=== PATIENT | female | born 1980 | race Caucasian/White ===

== ENCOUNTER 2023-03-07 09:54 | Outpatient (OUT) | payer BC, SELFPAY ==
--- NOTE | 2023-03-07 10:42 | PM.PRESUREVA ---
History of Present Illness History of Present Illness Chief complaint: MENORRHAGIA Narrative: Patient presents for preadmission testing. The patient complains of heavy painful periods. She denies fever, nausea, vomiting, dysuria, or any other complaints. Review of Systems ROS Narrative REVIEW OF SYSTEMS: Negative except as stated in HPI, ten or more systems reviewed. Constitutional: No fever , chills, weakness ENT: No sore throat or epistaxis Cardiovascular: No edema, chest pain, palpitations, or activity intolerance Respiratory: No shortness of breath, cough, or wheezing Musculoskeletal: No joint pain or swelling Gastrointestinal: No constipation, diarrhea, or vomiting Genitourinary: No dysuria or hematuria Neurological: No numbness, tingling, weakness, or headache Psychiatric: No mood changes PFSH PFSH Medical History (Updated 03/07/23 @ 10:27 by Ana Bowers NP) Surgical History (Updated 03/07/23 @ 10:27 by Ana Bowers NP) (2008) Family History (Updated 03/07/23 @ 10:27 by Ana Bowers NP) Other Family history of colon cancer Family history of hypertension Family history of myocardial infarction Social History (Updated 03/07/23 @ 10:22 by Ana Bowers NP) Within the past year, how often did you have a drink containing alcohol: monthly or less Smoking status: Never smoker Non-prescribed substance use: denies use Highest level of school completed/degree received: Associate degree: occupational, technical, vocational program Meds Home Medications and Allergies Home Medications Medication Instructions Recorded Confirmed Type bupropion HCl 300 mg 24 hr tablet, 300 mg PO QDAY 03/07/23 03/07/23 History extended release escitalopram oxalate 5 mg tablet 5 mg PO QDAY 03/07/23 03/07/23 History hormone supplement 03/07/23 History pantoprazole 40 mg tablet,delayed 40 mg PO Q12H PRN heartburn 03/07/23 03/07/23 History release Allergies Allergy/AdvReac Type Severity Reaction Status Date / Time sulfamethoxazole Allergy Hives Verified 03/07/23 10:19 [From Bactrim] trimethoprim [From Bactrim] Allergy Hives Verified 03/07/23 10:19 tuberculin,PPD,multi-puncture Allergy Hives Verified 03/07/23 10:19 Exam Narrative Exam Narrative: Constitutional: Awake, alert, comfortable, well-appearing, nontoxic, interactive, vital signs as charted Head: Normocephalic, atraumatic Neck: Supple, normal appearance, normal range of motion, no meningeal signs, no lymphadenopathy Respiratory: No respiratory distress, breath sounds clear Cardiovascular: Regular rate and rhythm, strong and regular heart tones Abdomen: Nontender, normal bowel sounds, soft, no CVA tenderness Musculoskeletal: Normal gait, no swelling or edema Skin: No rashes or induration, no lesions, only visible skin inspected Neuro: No neurological deficits, normal sensation Psychiatric: Oriented ?3, flat affect Assessment and Plan Assessment and Plan (1) Dysmenorrhea: (2) Menorrhagia: (3) Pelvic pain: Plan vNOTES Hysterectomy, possible bilateral salpingo-oophorectomy, possible cystoscopy, possible exploratory laparotomy scheduled with Dr. Chen 03/16/2023.
[2023-03-07 10:48] LABS: Basophils Absolute Auto 0.1 10^3/uL (0.0-0.1); Basophils Percent Auto 0.7 % (0.2-2.0); Eosinophils Absolute Auto 0.2 10^3/uL (0.0-0.7); Eosinophils Percent Auto 1.7 % (0.9-7.0); Hemoglobin 12.2 g/dL (12.0-16.0); Immature Granulocytes Abs Auto 0.03 10^3/uL (0.00-0.03); Immature Granulocytes Pct Auto 0.3 % (0.0-0.5); Lymphocytes Absolute Auto 2.6 10^3/uL (1.2-3.8); Lymphocytes Percent Auto 29.3 % (20.5-60.0); Mean Corpuscular Hemoglobin 29.9 pg (26.7-34.0); Mean Corpuscular Volume 90.7 fL (81.0-99.0); Mean Platelet Volume 10.5 fL (9.5-13.5); Monocytes Absolute Auto 0.7 10^3/uL (0.3-0.8); Monocytes Percent Auto 7.6 % (1.7-12.0); Neutrophils Absolute Auto 5.4 10^3/uL (1.4-6.5); Neutrophils Percent Auto 60.4 % (43.0-75.0); Platelet Count 269 10^3/uL (150-450); Red Blood Count 4.08 10^6/uL (4.20-5.40); Red Cell Distribution Width 13.1 % (11.0-15.0); White Blood Count 8.9 10^3/uL (4.0-11.0)
[2023-03-07 11:00] LABS: INR 0.93; Partial Thromboplastin Time 27.1 sec (22.3-36.2); Prothrombin Time 9.9 sec (9.0-11.6)
[2023-03-07 11:08] LABS: Alanine Aminotransferase 31 U/L (14-59); Albumin Globulin Ratio 1.2; Albumin Level 3.7 g/dL (3.4-5.0); Alkaline Phosphatase 87 U/L (46-116); Anion Gap 11.6; Aspartate Amino Transferase 15 U/L (15-37); BUN Creatinine Ratio 13.6; Bilirubin Direct 0.1 mg/dL (0.0-0.2); Bilirubin Total 0.2 mg/dL (0.2-1.0); Calcium 8.9 mg/dL (8.5-10.1); Carbon Dioxide 27.5 mmol/L (21.0-32.0); Chloride 105 mmol/L (98-107); Estimated GFR (African America >60 (>=60); Estimated GFR (Non-African Ame >60 (>=60); Globulin 3.2 g/dL; Glucose 94 mg/dL (74-106); Potassium 4.1 mmol/L (3.5-5.1); Sodium 140 mmol/L (136-145); Total Protein 6.9 g/dL (6.4-8.2)
== END 2023-03-07 09:55 ==
LOC: PST 09:57
PROVIDERS: Obstetrics & Gynecology
DX: Z01.812 Encounter for preprocedural laboratory examination (principal); N92.0 Excessive and frequent menstruation with regular cycle; R10.2 Pelvic and perineal pain; N94.6 Dysmenorrhea, unspecified; N94.10 Unspecified dyspareunia
CPT/HCPCS: 36415; 80048; 80076; 85025; 85610; 85730; G0463

== ENCOUNTER 2023-03-16 11:28 | Day surgery (SDC) | payer BC, SELFPAY ==
[2023-03-07 10:23] VITALS: BP 124/81; PULSE 65; RESP 14; TEMP 36.4; O2SAT 98; BMI 34.5
[2023-03-16] VITALS (16 sets, daily range): BP systolic 118–145; BP diastolic 77–105; PULSE 67–111; RESP 14–24; TEMP 36.3–36.5; O2SAT 95–100
[2023-03-16 11:39] LABS: Basophils Absolute Auto 0.1 10^3/uL (0.0-0.1); Basophils Percent Auto 0.6 % (0.2-2.0); Eosinophils Absolute Auto 0.2 10^3/uL (0.0-0.7); Eosinophils Percent Auto 2.6 % (0.9-7.0); Hematocrit 38.4 % (36.0-48.0); Hemoglobin 12.5 g/dL (12.0-16.0); Immature Granulocytes Abs Auto 0.03 10^3/uL (0.00-0.03); Immature Granulocytes Pct Auto 0.4 % (0.0-0.5); Lymphocytes Absolute Auto 2.5 10^3/uL (1.2-3.8); Lymphocytes Percent Auto 32.3 % (20.5-60.0); Mean Corpuscular HGB Conc 32.6 g/dL (29.9-35.2); Mean Corpuscular Hemoglobin 29.4 pg (26.7-34.0); Mean Corpuscular Volume 90.4 fL (81.0-99.0); Mean Platelet Volume 9.8 fL (9.5-13.5); Monocytes Absolute Auto 0.6 10^3/uL (0.3-0.8); Monocytes Percent Auto 7.2 % (1.7-12.0); Neutrophils Absolute Auto 4.4 10^3/uL (1.4-6.5); Neutrophils Percent Auto 56.9 % (43.0-75.0); Platelet Count 245 10^3/uL (150-450); Red Blood Count 4.25 10^6/uL (4.20-5.40); Red Cell Distribution Width 13.2 % (11.0-15.0); White Blood Count 7.8 10^3/uL (4.0-11.0)
[2023-03-16] MEDS: LACTATED RINGER'S SOLUTION 1,000 ML 50 ML IV (12:07)
[2023-03-16 12:40] LABS: HCG Quantitative <1 mIU/mL
[2023-03-16] MEDS: CEFAZOLIN SODIUM/DEXTROSE,ISO 2 GM/50 ML PIGGYBACK IV ×2 (12:51→18:45)
[2023-03-16] MEDS: LIDOCAINE HCL 1%-EPINEPHRINE 1:100,000 20 ML MDV INJ (13:13)
[2023-03-16] MEDS: 0.9 % SODIUM CHLORIDE 30 ML INJ (13:13)
[2023-03-16] MEDS: LACTATED RINGER'S SOLUTION 1,000 ML 1000 ML IV (14:53)
--- NOTE | 2023-03-16 15:11 | PC.NURSE ---
PATIENT HAD A 16 AUSTRALIAN CATHETER PLACED IN THE OR. PATIENT HAD 400 CLEAR/YELLOW URINE DRAINED DURING THE CASE. PATIENT HAD CATHETER REMOVED PRIOR TO LEAVING THE OR FOR PACU.
--- NOTE | 2023-03-16 15:14 | OP_ITS ---
OPERATION DATE: ??03/16/2023 PROCEDURE:? vNOTES hysterectomy with cystoscopy. PREOPERATIVE DIAGNOSIS:? Menorrhagia, dysmenorrhea, dyspareunia. POSTOPERATIVE DIAGNOSIS:? Menorrhagia, dysmenorrhea, dyspareunia. ANESTHESIA:? General. SURGEON:? Mich Chen D.O. EGG PROCESSOR:? DOMINIC Tran URINE OUTPUT:? Yellow and clear. BLOOD LOSS:? 200 mL. FINDINGS:? Slightly enlarged uterus, normal appearing ovaries, absent tubes. SPECIMEN:? Cervix and uterus. PROCEDURE:? Patient was brought back to the operating room where she was given general anesthesia.? She was placed in the dorsolithotomy position, after being prepped and draped in a sterile fashion.? A Ramos catheter was placed.? A weighted speculum was placed posterior in the vagina.? The cervix was grasped anteriorly and posteriorly with two single tooth tenaculums and placed on traction.? A solution of Marcaine, lidocaine and epinephrine and saline was liberally infiltrated into the cervical vaginal junction.? The knife was then used to circumscribe the cervical vaginal junction and the posterior cul-de-sac was sharply entered without difficulty.? A long weighted duck tail speculum was placed and the peritoneum was tacked to the vaginal epithelium.? We then turned our attention to the uterosacral ligaments which were bilaterally cross clamped, transected and suture ligated and then were held with hemostats.? Attention was then turned to the anterior compartment, where the cervical vaginal junction was similarly divided, and the bladder was then sharply and bluntly dissected off the cervix and the lower uterine segment, and the anterior cul-de-sac was sharply entered.? The vaginal epithelium was tacked to the peritoneum.? Lateral attachments of the uterus were secured with Govind clamps and suture ligated.? The retractors were then removed and were placed by the path inner ring anteriorly followed by posteriorly.? Once the ring was seated, the gel cap was placed and the laparoscopic ports were placed through this cap and the gas was allowed to insufflate the pelvis.? A GynLap was placed posteriorly to facilitate mobilization of the bowel, control bleeding.? This was later retrieved.? The LigaSure device was used to secure the lateral attachments of the uterus on the left side, including the cardinal ligaments and the uterine vasculature.? Once the utero-ovarian ligament was reached, we turned our attention to the right side where the LigaSure device was used to fully detach the uterus from the pelvic side wall.? The ureters were seen visually; before, during and after the pedicles were created.? The ureters were bilaterally in normal locations, peristalsing.? Please note that the right and left ovary were already removed and were not visualized.?? Please note that the LigaSure was used on the patient?s left side to fully detach the uterus from the pelvic side wall.? The uterus was removed from the field.? The GynLap was also removed from the field.? The inner ring and gel port caps were removed and the vaginal retractors were replaced.? Lateral figure of eight sutures were placed bilaterally, where bleeding occurred, behind the ring, and no further sutures were needed.? The colpopexy was then carried out, passing a stitch posteriorly to the vaginal wall, capturing the left uterosacral ligament, going across the peritoneum posteriorly to the right and exiting out the vaginal wall posteriorly.? The vaginal cuff was closed in a single running locked stitch using 0 Monocryl, and the uterosacral ligaments were cut.? Once the vaginal cuff was fully closed, the uterosacral colpopexy stitch was then tied down tightly, elevating the vaginal cuff to the uterosacral ligaments in a satisfactory manner.? The Ramos catheter was removed and the patient was awakened and taken to recovery in excellent condition.? Sponge, lap and instruments counts correct x2.? MTDD
[2023-03-16] MEDS: ONDANSETRON PF 4 MG/2 ML VIAL IV (15:22)
[2023-03-16] MEDS: HYDROMORPHONE HCL 0.5 MG/0.5 ML SYRINGE IV ×2 (15:31→15:47)
--- NOTE | 2023-03-16 15:44 | PC.NURSE ---
medicated for lower abdominal cramping; peripad dry; states nausea better; no emesis
--- NOTE | 2023-03-16 15:52 | PC.NURSE ---
peripad; states having pain relief
--- NOTE | 2023-03-16 16:04 | PC.NURSE ---
medicated for cramping lower abdominal pain as ordered and given warm blanket for abdomen; scant bloody drainage noted on peripad; no c/o nausea
--- NOTE | 2023-03-16 16:14 | PC.NURSE ---
No change in scant drainage on peripad; no further c/o nausea; resting with eyes closed and even,unlabored respirations
--- NOTE | 2023-03-16 16:48 | PC.NURSE ---
scant drainage noted on pad; no c/o nausea and vomiting
--- NOTE | 2023-03-16 16:49 | PC.NURSE ---
medicated with 1 Percocet per pt request
--- NOTE | 2023-03-16 16:50 | PC.NURSE ---
Medicated with 1 Percocet per pt request
[2023-03-16] MEDS: LACTATED RINGER'S SOLUTION 1,000 ML 125 ML IV (16:55)
[2023-03-16] MEDS: KETOROLAC TROMETHAMINE 30 MG/ML VIAL IVP (18:01)
[2023-03-16] MEDS: DOCUSATE SODIUM 100 MG CAPSULE PO (20:04)
[2023-03-16 21:00] LABS: Basophils Percent Auto 0.2 % (0.2-2.0); Hematocrit 34.4 % (36.0-48.0); Hemoglobin 11.8 g/dL (12.0-16.0); Immature Granulocytes Abs Auto 0.06 10^3/uL (0.00-0.03); Immature Granulocytes Pct Auto 0.4 % (0.0-0.5); Lymphocytes Absolute Auto 1.1 10^3/uL (1.2-3.8); Mean Corpuscular HGB Conc 34.3 g/dL (29.9-35.2); Mean Corpuscular Volume 87.5 fL (81.0-99.0); Mean Platelet Volume 10.1 fL (9.5-13.5); Monocytes Absolute Auto 0.3 10^3/uL (0.3-0.8); Monocytes Percent Auto 1.7 % (1.7-12.0); Neutrophils Absolute Auto 14.3 10^3/uL (1.4-6.5); Neutrophils Percent Auto 90.7 % (43.0-75.0); Platelet Count 266 10^3/uL (150-450); Red Blood Count 3.93 10^6/uL (4.20-5.40); White Blood Count 15.8 10^3/uL (4.0-11.0)
== END 2023-03-17 09:10 | disposition home or self-care (01) ==
PROVIDERS: Visit Provider Obstetrics & Gynecology
PROC: (CPT 58550; principal; 2023-03-16 12:30)
DX: N92.0 Excessive and frequent menstruation with regular cycle (principal); R10.2 Pelvic and perineal pain; N94.6 Dysmenorrhea, unspecified; N94.10 Unspecified dyspareunia; N88.8 Other specified noninflammatory disorders of cervix uteri
CPT/HCPCS: 58550; 36415; 82565; 84520; 84702; 85025; 86850; 86900; 86901; 88307; 94667; 94668; J1170; J2704

== ENCOUNTER 2024-05-02 20:28 | Outpatient (REF) | payer SELFPAY ==
[2024-05-08 13:13] LABS: Age Gdln ACOG Testing Note (.); HPV Aptima Negative (Negative); IGP, Aptima HPV, rfx 16/18,45 Note (.)
== END 2024-05-02 20:29 | disposition home or self-care (01) ==
LOC: LAB 20:28
PROVIDERS: Visit Provider Obstetrics & Gynecology
DX: Z01.419 Encounter for gynecological examination (general) (routine) without abnormal findings (principal)
CPT/HCPCS: 87624; 88175

== ENCOUNTER 2025-05-12 20:23 | Outpatient (REF) | payer SELFPAY ==
--- OUTSIDE RECORDS SUMMARY | 2009-09-15 20:00 | XMS_ITS | Continuity of Care Document ---
Author Organization [facility] Address [address] [place] [address] Phone Care Team Providers Care Curriculum Development Manager Name Role Phone Reilly Jara Unavailable Unavailable Procedures Procedure Date OFFICE/OUTPATIENT VISIT, EST HEP B VACCINE, ADULT, IM TB INTRADERMAL TEST HEP B VACCINE, ADULT, IM OFFICE/OUTPATIENT VISIT, EST OFFICE/OUTPATIENT VISIT, EST HEP B VACCINE, ADULT, IM OFFICE/OUTPATIENT VISIT, EST TDAP VACCINE >7 IM Advance Directives Directive Yes / No Effective Date File Name No Information Encounters Encounter Description Practice Location Reason(s) For Visit Diagnoses Date Provider Providers Copied on Encounter OFFICE/OUTPATI ENT VISIT, [facility], [address], [place], [id number], [place] tel:[phone] [facility] No Information Shani Horowitz. [address], [place], [id number], [place]. tel:[phone] OFFICE/OUTPATI ENT VISIT, [facility], [address], [place], [id number], [place] tel:[phone] [facility] No Information Shani Horowitz. [address], [place], [id number], [place]. tel:[phone] OFFICE/OUTPATI ENT VISIT, [facility], [address], [place], [id number], [place] tel:[phone] [facility] No Information Shani Horowitz. [address], [place], [id number], [place]. tel:[phone] OFFICE/OUTPATI ENT VISIT, EST [facility], [address], [place], [id number], [place] tel:[phone] [facility] No Information Shani Horowitz. [address], [place], [id number], [place]. tel:[phone] Family History Family Member Type Diagnosis Age At Onset No Information Payers Payer name Insurance type Covered green party ID Authoriza tion(s) No Information Social History Type Description Quantity Date Captured Comments Sex Female Smoking Status No Information Chief Complaint And Reason For Visit No Information Reason For Referral Reason For Referral No Information History Of Present Illness Encounter Date Complaint History Of Prese nt Illness No Information Functional Status Date Functional Assessmen t No Information Instructions Date Instruction Additional Infor mation No Information Assessments Type Assessment Date No Information Patient Care Teams Name Effective Dates (start - stop) Status Members No Information
--- OUTSIDE RECORDS SUMMARY | 2025-05-12 13:10 | XMS_ITS | Encounter Summary ---
Author Organization [facility] Address [address] [place] [address] Care Team Providers Care Tiler Name Role Phone Alisa Hinkle MD Primary Care Provider [phone] Reason for Visit * Reason Comments Gynecologic Exam Encounter Details Date Type Department Care Team (Late st Contact Info) Description 05/12/2025 1:10 PM EDT Office Visit [facility] [address] [place] [id number] Mich Chen DO [address] [place] [id number] Well woman exam with routine gynecological exam; H/O: hysterectomy; Breast cancer screening by mammogram Social History Tobacco Use Types Packs/Day Years Used Date Smoking Tobacco: Former Cigarettes Smokeless Tobacco: Never Alcohol Use Standard Drinks/Week Comments Not Currently 0 (1 standard drink = 0.6 oz pur e alcohol) caffeine :3-4 cups per day Comments No Sex and Gender Information Value Date Recorded Sex Assigned at Female 02/13/2023 10:46 AM EDT Legal Sex Female 6:48 PM EDT Gender Identity Female 02/13/2023 10:46 AM EDT Sexual Orientation Not on file documented as of this encounter Last Filed Vital Signs Vital Sign Reading Time Taken Comments Blood Pressure 122/74 05/12/2025 1:48 PM EDT Pulse - - Temperature - - Respiratory Rate - - Oxygen Saturation - - Inhaled Oxygen Concentration - - Weight 98 kg (216 lb) 05/12/2025 1:48 PM EDT Height - - Body Mass Index 33.83 05/02/2024 11:32 AM EDT documented in this encounter Plan of Treatment Upcoming Encounters Date Type Department Care Team (Late st Contact Info) Description 05/18/2026 2:00 PM EDT Procedure Visit [facility] [address] [address] Mich Chen DO [address] [facility] [place] [address] Scheduled Orders Name Type Priority Associated Diagnoses Orde r Schedule Bilateral screening mammogram Imaging Routine Breast cancer screening by mammogram Expected: 05/12/2025 (Approximate), Expires: 05/12/2026 THIN PREP TIS PAP AND HR HPV DNA Pathology and Cytology Routine Well woman exam with routine gynecological exam H/O: hysterectomy Ordered: 05/12/2025 documented as of this encounter Visit Diagnoses Diagnosis Well woman exam with routine gynecological exam Routine gynecological examination H/O: hysterectomy Acquired absence of both cervix and uterus Breast cancer screening by mammogram documented in this encounter Care Teams Tiler Relationship Specialty Start Date End Date Alisa Hnikle MD [address] [place] [phone] PCP - General Family Medicine 02/14/23 documented as of this encounter
--- OUTSIDE RECORDS SUMMARY | 2025-05-12 20:26 | XMS_ITS | CCD ---
Author Organization [facility] Care Team Providers Care Java Manager Name Role Phone China Shi Unavailable DO China Shi Primary Care Provider DO China Shi Attending Provider [phone] China Shi Admitting Unavailable China Shi Attending Unavailable China Shi Primary Care Unavailable APRIL, DR IYER Admitting Unavailable APRIL, DR IYER Attending Unavailable APRIL, DR IYER Consulting Unavailable APRIL, DR IYER Admitting Unavailable APRIL, DR IYER Attending Unavailable APRIL, DR IYER Admitting Unavailable APRIL, DR IYER Attending Unavailable CHINA SHI Primary Care Unavailable CHINA SHI Primary Care Unavailable APRIL, DR IYER Admitting Unavailable APRIL, DR IYER Attending Unavailable APRIL, DR IYER Consulting Unavailable APRIL, DR IYER Admitting Unavailable APRIL, DR IYER Attending Unavailable APRIL, DR IYER Consulting Unavailable LETICIA SIMS Consulting Unavailable [place] Consulting Unavailable GEMBUS, LAKEISHA Consulting Unavailable CHINA SHI Primary Care Unavailable APRIL, DR IYER Admitting Unavailable APRIL, DR IYER Attending Unavailable APRIL, DR IYER Admitting Unavailable APRIL, DR IYER Attending Unavailable APRIL, DR IYER Consulting Unavailable ZIEBER, DR MAGDALENA Castle Consulting Unavailable JAYLON CHEN Attending Unavailable China Shi MD Primary Care Provider [phone] Unavailable Primary Care Provider UnavailJONATHON Roach Referring Unavailable China Shi MD Primary Care Provider [phone] Allergies Allergy Classification Reported Allergen(s) Allergy Type Date of Onset Reaction(s) Facility (8 sources) Sulfamethoxazole / Trimethoprim Drug Allergy 07-10-20 18 hives, Unknown [facility] [employer] Other (6 sources) Tuberculin PPD Drug allergy skin reaction [facility] [employer] Other (2 sources) Sulfamethoxazole; Translations: [sulfamethoxazole] Drug Allergy 08-22-20 [facility] (2 sources) Trimethoprim; Translations: [trimethoprim] Drug Allergy 08-22-20 18 [facility] (2 sources) tuberculin, purified protein deriva; Translations: [tuberculin, purified protein deriva] Allergy to substance 08-22-20 Redness of Skin [facility] (1 source) Sulfamethoxazole / Trimethoprim Drug Allergy [facility] (1 source) Tuberculin PPD Stephanie Test Drug allergy (disorder) [facility] (2 sources) Other Propensity to adverse reactions 05-01-20 [facility] (2 sources) Tuberculin Tests Drug Intolerance 09-29-19 21 Unknown [facility] Medications Current Medications Medication Drug Class(es) Dates Sig (Normalized) Sig (Original) acetaminophen 325 mg / HYDROcodone bitartrate 5 mg oral tablet (1 source) Opioid Agonist Start: 08-22-2018 take 1 tablet by mouth every four to six hours Hydrocodone-Aceta minophen ([place]) 5-325 mg tablet Active 1 TAB PO EVERY 4-6 HOURS 05 01August 22, 2018 amoxicillin 875 mg oral tablet (1 source) Penicillin-class Antibacterial Start: 04-10-2023 take 1 tablet by mouth every twelve hours Amoxicillin 875 MG 1 tablet Orally Twice a day for 7 days Mar, Active amoxicillin 875 mg / clavulanate 125 mg oral tablet (1 source) Penicillin-class Antibacterial Start: 07-11-2022 take 1 tablet by mouth every twelve hours Amoxicillin-Pot Clavulanate 875-125 MG 1 tablet Orally Twice a day for 10 day(s) Jun, Active Apple Cider Vinegar (6 sources) Apple Cider Vinegar Active ascorbic acid 100 mg oral tablet (1 source) Vitamin C Start: 08-22-2018 Ascorbic Acid (Vitamin C) (Vitamin C) 100 mg Tablet Active TABLET August 22, 2018 1:00am 24 hr buPROPion hydrochloride 150 mg extended release oral tablet (3 sources) Aminoketone Start: 07-11-2022 take 1 tablet by mouth every twenty-four hours buPROPion HCl ER (XL) 150 MG 1 tablet in the morning Orally Once a day for 30 day(s) Jun, Active take 1 tablet by jewels th once daily in the morning buPROPion HCl ER (XL) 300 MG take 1 tabl et by mouth every morning for 30 Active escitalopram 5 mg oral tablet (2 sources) Serotonin Reuptake Inhibitor Start: 02-24-2023 take 1 tablet by mouth every twenty-four hours Lexapro 5 MG 1 tablet Orally Once a day for 90 days Feb, Active folic acid 1 mg oral tablet (7 sources) Start: 08-22-2018 Folic Acid Active TABLET August 22, 2018 1:00am take 1 tablet by mouth once socrates y Folic Acid 400 MCG 1 tablet Orally Once a day Active take 1 tablet by jewels th every twenty-four hours Folic Acid 400 MCG 1 tablet Orally Once a day Active loratadine 10 mg oral tablet (6 sources) take 1 tablet by mouth once daily as needed Loratadine 10 MG 1 tablet as needed Orally Once a day Active Multi For Her - (6 sources) Multi For Her - Orally Active Vsgqnctfwvsd-Fvt-Bmqa -Fa-Vit K (Multi-Day Plus Minerals) 18 mg iron-400 mcg-25 mcg Tablet (1 source) Start: 8 Zopmnnwigxxv-Xmp-Lncs- Fa-Vit K (Multi-Day Plus Minerals) 18 mg iron-400 mcg-25 mcg Tablet Active TABLET August 22, 2018 1:00am pantoprazole 40 mg delayed release oral tablet (2 sources) Proton Pump Inhibitor Start: 3 take 1 tablet by mouth once daily as needed Pantoprazole Sodium 40 MG 1 tablet Orally Once a day as needed for 30 days Feb, Active Vitamin B-12 1000 MCG (3 sources) Vitamin B-12 100 0 MCG Orally Active vitamin b12 1 mg oral tablet (1 source) Vitamin B12 Start: 8 Cyanocobalamin (Vitamin B-12) (Vitamin B-12) 1,000 mcg Tablet Active TABLET August 22, 2018 1:00am Vitamin C 500 MG (6 sources) Vitamin C 500 MG Orally Active Completed/Discontinued Medications Medication Drug Class(es) Dates Sig (Normalized) Sig (Original) ALPRAZolam 0.5 mg oral tablet (4 sources) Benzodiazepine Start: 12-11-2019 take 0.5-1 tablets by mouth twice daily as needed ALPRAZolam 0.5 MG 1/2-1 tablet Orally Twice a day as needed for 30 days Nov, Not-Taking Problems Active Problems Problem Classification Problem Date Documented Date Episodic/Chronic Administrative/socia l admission (2 sources) Encounter for pre-employment examination; Translations: [Encounter for pre-employment examination] Onset: 10-22-2024 Episodic Anxiety disorders (10 sources) Anxiety; Translations: [Anxiety disorder, unspecified] Onset: 03-22-2023 Chronic Esophageal disorders (7 sources) Gastroesophageal reflux disease; Translations: [Gastro-esophageal reflux disease without esophagitis] Chronic Menstrual disorders (18 sources) Excessive and frequent menstruation; Translations: [Excessive and frequent menstruation with regular cycle] Onset: 04-19-2022 Resolved: 04-19-2022 Chronic Other ear and sense organ disorders (6 sources) Hearing loss; Translations: [Unspecified hearing loss, unspecified ear] Chronic Other female genital disorders (2 sources) Deep pain on intercourse; Translations: [Deep dyspareunia] Onset: 03-22-2023 03-22-2023 Chronic Other nervous system disorders (6 sources) Reduced concentration; Translations: [Attention and concentration deficit] Chronic Other nutritional; endocrine; and metabolic disorders (2 sources) Obesity; Translations: [Obesity, unspecified] Chronic Other nutritional; endocrine; and metabolic disorders (1 source) Obesity, unspecified Chronic Other nutritional; endocrine; and metabolic disorders (2 sources) Obese class I; Translations: [Obesity, unspecified] Onset: 09-29-2020 03-22-2023 Chronic Other skin disorders (1 source) Other hypertrophic disorders of the skin; Translations: [OTHER HYPERTROPHIC DISORDERS SKIN] Onset: 06-16-2022 Episodic Substance-related disorders (1 source) Nicotine dependence, cigarettes, uncomplicated; Translations: [NICOTINE DEPEND CIGARETTES UNCOMP] Onset: 06-16-2022 Chronic Unclassified (1 source) Encounter for screening for malignant neoplasm of cervix; Translations: [Encounter for screening for malignant neoplasm of cervix] Onset: 04-19-2022 Unclassified (1 source) CONTACT W/AND (SUSP) EXPOS COVID-19; Translations: [CONTACT W/AND (SUSP) EXPOS COVID-19] Onset: 06-08-2022 Past or Other Problems Problem Classification Problem Date Documented Da te Episodic/Chronic Chronic obstructive pulmonary disease and bronchiectasis (2 sources) Bronchitis; Translations: [Bronchitis, not specified as acute or chronic] Onset: 03-22-2023 03-22-2023 Episodic Other inflammatory condition of skin (2 sources) Itching of skin; Translations: [Pruritus, unspecified] Onset: 09-29-2020 03-22-2023 Episodic Other screening for suspected conditions (not mental disorders or infectious disease) (2 sources) Encounter for screening mammogram for malignant neoplasm of breast; Translations: [Encounter for screening for malignant neoplasm of cervix] Onset: 04-19-2022 Resolved: 04-19-2022 Episodic Other upper respiratory infections (3 sources) Acute sinusitis, unspecified; Translations: [Sore throat symptom] Onset: 03-22-2023 Episodic Results Test Name Value Interpretation Reference Range Facility T-Spoton 10-31-2024 T-Spot. TB Test Normal [facility] Comment on above: Result Comment: [facility] [employer] [address] [place] [address] (NOTE) T-SPOT.TB Test Results --------- T-SPOT TB Negative Normal Value: Negative A negative test result does not exclude the possibility of exposure to or infection with Mycobacterium tuberculosis (M tuberculosis). Patients with recent exposure to TB infected individuals exhibiting a negative T-SPOT.TB result should be considered for retesting within 6 weeks or if other relevant clinical symptoms indicate. Results from T-SPOT.TB testing must be used in conjunction with each individual's epidemiological history, current medical status, and results of other diagnostic evaluations. The T-SPOT.TB test is qualitative and results are reported as positive, borderline or negative, given that the test controls perform as expected. In line with the Centers for Disease Control and Prevention's 2010 recommendation to report quantitative measurements alongside the qualitative result, the laboratory provides spot counts for information purposes only. The T-SPOT.TB test should be interpreted as a quantitative test. Panel A Spot Count (Corrected for Negative Control) 1 Panel B Spot Count (Corrected for Negative Control) 2 Negative Control Passed Positive Control Passed Performed By: #### T SPOT #### [employer] [address] [place] [address] Numerical Control Lathe Operator: Pino Camara MD IGP,APTIMA HPV,AGE GDLNon AGE GDLN ACOG TESTING Note . [facility] Comment on above: TESTS RESULT FLAG UN ITS REF RANGE LAB Clinician Provided Cytology Information Source.............Vagina No. of containers..01 ThinPrep Vial Age Algo ACOG Micheline... FLAG LEGEND: L-Low Normal,H-High Normal,LL-Alert Low,HH-Alert High <-Panic Low,>-Panic High,A-Abnormal,AA-Critical Abnormal Performed at: 01 =[address] [address] Miladys Romano MD, HPV APTIMA Negative Negative [facility] Comment on above: This nucleic acid am plification test detects fourteen high- risk HPV types (16,18,31,33,35,39,45,51,52,56,58,59,66,68) without differentiation. Performed at: =[address] [id number] Numerical Control Lathe Operator: Miladys Romano MD, Phone: [phone] Performed at: [address] [id number] Numerical Control Lathe Operator: Miladys Romano MD, Phone: [phone] IGP, APTIMA HPV, RFX 16/18,45 Note . [facility] Comment on above: TESTS RESULT FLAG UN ITS REF RANGE LAB DIAGNOSIS: 02 NEGATIVE FOR INTRAEPITHELIAL LESION OR MALIGNANCY. Specimen adequacy: 02 Satisfactory for evaluation. Performed by: 02 Bk Santiago Process Cheese Cooker (ASCP) . 02 Note: Note 02 The Pap smear is a screening test designed to aid in the detection of premalignant and malignant conditions of the uterine cervix. It is not a diagnostic procedure and should not be used as the sole means of detecting cervical cancer. Both false-positive and false-negative reports do occur. Test Methodology: Note 02 This liquid based ThinPrep(R) pap test was screened with the use of an image guided system. HPV Genotype Reflex Note 02 Criteria not met, HPV Genotype not performed. FLAG LEGEND: L-Low Normal,H-High Normal,LL-Alert Low,HH-Alert High <-Panic Low,>-Panic High,A-Abnormal,AA-Critical Abnormal Performed at: 02 [address] [facility] [address] [place] [address] Miladys Romano MD, SPATULA-ALONE [facility]AG[facility] CBC AUTO DIFFon 06-10-2022 BASO # 0.0 103/ul Normal 0.0-0.1 [facility] Comment on above: Performed By: #### C BC #### [facility] [address] [address] [address] Jose Alberto Cline Basophils/100 WBC (Bld) 0.3 % Normal 0.2-2.0 [facility] Comment on above: Performed By: #### C BC #### [facility] [address] [address] [address] Jose Alberto Cline EO # 0.2 103/ul Normal 0.0-0.7 [facility] Comment on above: Performed By: #### C BC #### [facility] [address] [place] [address] Dr. Jose Alberto Cline Eosinophils/100 WBC (Bld) 1.8 % Normal 0.9-7.0 [facility] Comment on above: Performed By: #### C BC #### [facility] [address] [place] [address] Dr. Jose Alberto Cline Erythrocyte distribution width (RBC) [Ratio] 12.4 % Normal 11.0-15.0 [facility] Comment on above: Performed By: #### C BC #### [facility] [address] [place] [address] Dr. Jose Alberto Cline Hemoglobin (Bld) [Mass/Vol] 12.6 g/dL Normal 12.0-16.0 [facility] Comment on above: Performed By: #### C BC #### [facility] [address] [place] [address] Dr. Jose Alberto Cline IG # 0.04 10e3/ul Critically high 0.00-0.03 [facility] Comment on above: Performed By: #### C BC #### [facility] [address] [place] [address] Dr. Jose Alberto Cline IG % 0.3 % Normal 0.0-0.5 [facility] Comment on above: Performed By: #### C BC #### [facility] [address] [place] [address] Dr. Jose Alberto Cline LYMPH # 3.4 103/ul Normal 1.2-3.8 [facility] Comment on above: Performed By: #### C BC #### [facility] [address] [place] [address] Dr. Jose Alberto Cline Lymphocytes/100 WBC (Bld) 26.9 % Normal 20.5-60.0 [facility] Comment on above: Performed By: #### C BC #### [facility] [address] [place] [address] Dr. Jose Alberto Cline MANUAL DIFF REQ NO Normal [facility] Comment on above: Performed By: #### C BC #### [facility] [address] [place] [address] Dr. Jose Alberto Cline MCH (RBC) [Entitic mass] 30.5 pg Normal 26.7-34.0 [facility] Comment on above: Performed By: #### C BC #### [facility] [address] [place] [address] Dr. Jose Alberto Cline MCHC (RBC) [Mass/Vol] 33.9 g/dL Normal 29.9-35.2 [facility] Comment on above: Performed By: #### C BC #### [facility] [address] [place] [address] Dr. Jose Alberto Cline MCV (RBC) [Entitic vol] 90.1 fL Normal 81.0-99.0 [facility] Comment on above: Performed By: #### C BC #### [facility] [address] [place] [address] Dr. Jose Alberto Cline MONO # 1.1 103/ul Critically high 0.3-0.8 [facility] Comment on above: Performed By: #### C BC #### [facility] [address] [place] [address] Dr. Jose Alberto Cline Monocytes/100 WBC (Bld) 8.4 % Normal 1.7-12.0 [facility] Comment on above: Performed By: #### C BC #### [facility] [address] [place] [address] Dr. Jose Alberto Cline NEUT # 7.8 103/ul Critically high 1.4-6.5 [facility] Comment on above: Performed By: #### C BC #### [facility] [address] [address] [address] Jose Alberto Cline Neutrophils/100 WBC (Bld) 62.3 % Normal 43.0-75.0 [facility] Comment on above: Performed By: #### C BC #### [facility] [address] [address] [address] Jose Alberto Cline Platelet mean volume (Bld) [Entitic vol] 10.2 fL Normal 9.5-13.5 [facility] Comment on above: Performed By: #### C BC #### [facility] [address] [place] [address] Dr. Jose Alberto Cline PLT 262 103/ul Normal 150-450 [facility] Comment on above: Performed By: #### C BC #### [facility] [address] [place] [address] Dr. Jose Alberto Cline RBC 4.13 106/ul Critically low 4.20-5.40 [facility] Comment on above: Performed By: #### C BC #### [facility] [address] [place] [address] Dr. Jose Alberto Cline WBC 12.6 103/ul Critically high 4.0-11.0 [facility] Comment on above: Performed By: #### C BC #### [facility] [address] [place] [address] Dr. Jose Alberto Cline PREG HCG QUALon 06-10-2022 , QUAL Negative Normal NEGATIVE [facility] Comment on above: Performed By: #### P REG #### [facility] [address] [place] [address] Dr. Jose Alberto Cline Covid-19 PCR (CVDTB)on 05-20 SARS-CoV-2 (COVID-19) RNA MARI+probe Ql (Unsp spec) Not detected Normal NOT DETECTED [facility] Comment on above: Result Comment: This test is not yet approved or cleared by the [place] FDA. When there are no FDA-approved or cleared tests available, and other criteria are met, FDA can make tests available under an emergency access mechanism called an Emergency Use Authorization (EUA). The EUA for this test is supported by the [place] of Health and Human Service's (HHS's) declaration that circumstances exist to justify the emergency use of in vitro diagnostics for the detection and/or diagnosis of the virus that causes COVID-19. This EUA will remain in effect (meaning this test can be used) for the duration of the COVID-19 declaration justifying emergency of IVDs, unless it is terminated or revoked by FDA (after which the test may no longer be used). When diagnostic testing is negative, the possibility of a false negative should be considered in the context of a patient's recent exposures and the presence of clinical signs and symptoms consistent with SARS-CoV-2. Performed By: #### C [facility] #### [facility] [address] [place] [address] Dr. Jose Alberto Cline US PELVIS AND TRANSVAGon US PELVIS AND TRANSVAG EXAMINATION: US PELVIS AND TRANSVAG HISTORY: Excessive and frequent menstruation COMPARISON: No relevant comparison available. TECHNIQUE: Transabdominal and transvaginal sonographic examination. FINDINGS: UTERUS: Normal size and appearance. Several nabothian cysts within michelle of cervix. Uterus size: 8.5-4 0.2 x 5.9 cm ENDOMETRIUM: Normal homogeneous appearance. Endometrial thickness: Up to 14 mm RIGHT OVARY: Normal size and appearance. Duplex Doppler demonstrates normal waveform and flow; resistive index 0.6. Ovary size: 1.2 x 1.4 x 1.1 cm LEFT OVARY: Normal size and appearance. Duplex Doppler demonstrates normal waveform and flow; resistive index 0.6. Ovary size: 3.6 x 1.9 x 2.3 cm CUL-DE-SAC: Unremarkable. No significant free fluid. BLADDER: Unremarkable. OTHER: None. IMPRESSION: 1. Endometrium is homogeneously echogenic, but at upper limits of normal in thickness; correlate with patient's stage in menstrual cycle. No appreciable mass or polyps. 2. Normal appearance of ovaries. Electronically authenticated by: MAGDALENA KAISER Date: 2022-05-12 18:15 Normal [facility] Human papilloma virus 16+18+ 31+33+35+39+45+51+52+56+58+59+66+68 DNA [Presence] in CerOrdered By: China Shi on 04-19-2022 HPV 16+18+31+33+35+39+45+5 1+52+56+58+59+66+68 DNA Probe+sig amp Ql (Cvx) Positive Negative [facility] Comment on above: This nucleic acid am plification test detects fourteen high- risk HPV types (16,18,31,33,35,39,45,51,52,56,58,59,66,68) without differentiation. IGP, Aptima HPV, rfx 16/18,4 5on 04-19-2022 PAP HPV 16 Negative Normal Negative [facility] Comment on above: Order Comment: Reaso n for Exam Screening for cervical cancer Specimen Comment: [id number] LMP OR MENOPAUSE DATE: 03/27/2022 Performed By: #### P AP #### [facility] , PAP HPV 18,45 Negative Normal Negative [facility] Comment on above: Order Comment: Reaso n for Exam Screening for cervical cancer Specimen Comment: [id number] LMP OR MENOPAUSE DATE: 03/27/2022 Result Comment: Perf ormed at: WB - [facility] [address] [id number] Numerical Control Lathe Operator: Miladys Romano MD, Phone: [phone] Performed at: =G - [facility] [address] [id number] Numerical Control Lathe Operator: Miladys Romano MD, Phone: [phone] PERFORMED BY: [address] [place] [address] PATHOLOGIST METAL SHAPING MACHINE OPERATOR MEGAN MARCELINO M.D. Performed By: #### P AP #### [facility] , PAP HPV Aptima Positive Critically abnormal Negative [facility] Comment on above: Order Comment: Reaso n for Exam Screening for cervical cancer Specimen Comment: [id number] LMP OR MENOPAUSE DATE: 03/27/2022 Result Comment: This nucleic acid amplification test detects fourteen high- risk HPV types (16,18,31,33,35,39,45,51,52,56,58,59,66,68) without differentiation. Performed By: #### P AP [id number] #### [facility] , Pap Image Guided Note Normal . [facility] Comment on above: Order Comment: Laura gaspar for Exam Screening for cervical cancer Specimen Comment: [id number] LMP OR MENOPAUSE DATE: 03/27/2022 Result Comment: TEST S RESULT FLAG UNITS REF RANGE LAB Clinician Provided Cytology Information LMP / Prev Treat...EGE=[id number] No. of containers..01 ThinPrep Vial DIAGNOSIS: 01 NEGATIVE FOR INTRAEPITHELIAL LESION OR MALIGNANCY. Specimen adequacy: 01 Satisfactory for evaluation. Endocervical and/or squamous metaplastic cells (endocervical component) are present. Performed by: 01 Twan Gallardo, Process Cheese Cooker (ASCP) . 01 Note: Note 01 The Pap smear is a screening test designed to aid in the detection of premalignant and malignant conditions of the uterine cervix. It is not a diagnostic procedure and should not be used as the sole means of detecting cervical cancer. Both false-positive and false-negative reports do occur. Test Methodology: Note 01 This liquid based ThinPrep(R) pap test was screened with the use of an image guided system. FLAG LEGEND: L-Low Normal,H-High Normal,LL-Alert Low,HH-Alert High <-Panic Low,>-Panic High,A-Abnormal,AA-Critical Abnormal Performed at: [facility] Lab[address] [place] [address] Miladys Romano MD, Performed By: #### P AP [id number] #### [facility] , No Panel InformationOrdered By: China Shi on 04-19-2022 Human Papilloma Virus Type 16 Negative Negative [facility] Human Papilloma Virus Type 18/45 Negative Negative [facility] Comment on above: Performed at: WB - [facility] [place] [address] [facility] [place], [place] [id number] Numerical Control Lathe Operator: Miladys Romano MD, Phone: [phone] Performed at: =G - [facility] [place] [address] [facility] [place], [place] [id number] Numerical Control Lathe Operator: Miladys Romano MD, Phone: [phone] IG Pap w/Ct-Ng & HPV Rflx (Off-Site Note . [facility] Comment on above: TESTS RESULT FLAG UN ITS REF RANGE LAB Clinician Provided Cytology Information LMP / Prev Treat...[id number] No. of containers..01 ThinPrep Vial DIAGNOSIS: 01 NEGATIVE FOR INTRAEPITHELIAL LESION OR MALIGNANCY. Specimen adequacy: 01 Satisfactory for evaluation. Endocervical and/or squamous metaplastic cells (endocervical component) are present. Performed by: Laverne Gallardo, Process Cheese Cooker (ASCP) . 01 Note: Note 01 The Pap smear is a screening test designed to aid in the detection of premalignant and malignant conditions of the uterine cervix. It is not a diagnostic procedure and should not be used as the sole means of detecting cervical cancer. Both false-positive and false-negative reports do occur. Test Methodology: Note 01 This liquid based ThinPrep(R) pap test was screened with the use of an image guided system. FLAG LEGEND: L-Low Normal,H-High Normal,LL-Alert Low,HH-Alert High <-Panic Low,>-Panic High,A-Abnormal,AA-Critical Abnormal Performed at: [address] [address] Miladys Romano MD, Vital Signs Date Time Vital Sign Value Performing Clinician Facility 02-24-2023 08:00-0400 Body height 170.18 cm China Shi Other [facility] Other 02-24-2023 08:00-0400 Body mass index (BMI) [Ratio] 34.58 kg/m2 China Manan Other [facility] Other 02-24-2023 08:00-0400 Body temperature 98.3 [degF] China Manan Other [facility] Other 02-24-2023 08:00-0400 Body weight 100.15 kg China Shi Other [facility] Other 02-24-2023 08:00-0400 Diastolic blood pressure 78 mm[Hg] China Manan Other [facility] Other 02-24-2023 08:00-0400 Respiratory rate 18 /min China Manan Other [facility] Other 02-24-2023 08:00-0400 SaO2% (BldA) [Mass fraction] 98 % China Shi Other [facility] Other 02-24-2023 08:00-0400 Systolic blood pressure 120 mm[Hg] China Shi Other [facility] Other 07-11-2022 15:00-0400 Body height 170.18 cm China Shi Other [facility] Other 07-11-2022 15:00-0400 Body mass index (BMI) [Ratio] 35.2 kg/m2 China Shi Other [facility] Other 07-11-2022 15:00-0400 Body temperature 97.9 [degF] China Shi Other [facility] Other 07-11-2022 15:00-0400 Body weight 101.97 kg China Boyders Other [facility] Other 07-11-2022 15:00-0400 Diastolic blood pressure 72 mm[Hg] China Shi Other [facility] Other 07-11-2022 15:00-0400 Respiratory rate 16 /min China Shi Other [facility] Other 07-11-2022 15:00-0400 SaO2% (BldA) [Mass fraction] 98 % China Shi Other [facility] Other 07-11-2022 15:00-0400 Systolic blood pressure 130 mm[Hg] China Shi Other [facility] Other 04-19-2022 16:00-0400 Body height 170.18 cm China Shi Other [facility] Other 04-19-2022 16:00-0400 Body mass index (BMI) [Ratio] 35.2 kg/m2 China Shi Other [facility] Other 04-19-2022 16:00-0400 Body temperature 97.6 [degF] China Shi Other [facility] Other 04-19-2022 16:00-0400 Body weight 101.97 kg China Shi Other [facility] Other 04-19-2022 16:00-0400 Diastolic blood pressure 82 mm[Hg] China Shi Other [facility] Other 04-19-2022 16:00-0400 Respiratory rate 16 /min China Shi Other [facility] Other 04-19-2022 16:00-0400 SaO2% (BldA) [Mass fraction] 98 % China Shi Other [facility] Other 04-19-2022 16:00-0400 Systolic blood pressure 122 mm[Hg] China Shi Other [facility] Other Encounters Encounter Date Encounter Type Care Provider Facility Start: 05-12-2025 End: 05-12-2025 Bamboo flowsheet Jaylon April DO Work Phone: [facility] Start: 05-12-2025 End: 05-12-2025 Bamboo flowsheet Jaylon April DO Work Phone: [facility] [place] [facility] Start: 10-22-2024 End: 10-22-2024 [facility] Start: 10-22-2024 End: 10-22-2024 Subsequent hospital visit by physician [facility] Start: 05-02-2024 End: 05-08-2024 Clinisync Result Encounter Jaylon Nicolaso DO Work Phone: [facility] Unsolicited Start: 05-02-2024 End: 05-08-2024 Clinisync Result Encounter Jaylon Nicolaso DO Work Phone: [facility] Unsolicited Start: 05-02-2024 End: 05-02-2024 ambulatory JAYLON ALVAREZZIO Not Available Start: 07-27-2023 End: 07-27-2023 ambulatory Chinanoam Shi Other [facility] Other Start: 07-27-2023 Telephone encounter China Shi [facility] Start: 02-24-2023 End: 02-24-2023 ambulatory China Shi Other [facility] Other Start: 02-24-2023 Encounter for genera l adult medical examination without abnormal findings China Shi [facility] Start: 02-24-2023 Periodic preventive med est patient 40-64yrs China Shi [facility] Start: 09-16-2022 ambulatory CHINA SHI Facility :[facility]1 Start: 09-12-2022 ambulatory CHINA SHI Facility :[facility] Start: 09-04-2022 Encounter for other preprocedural examination DR JAYLON CHEN [facility] Start: 08-31-2022 End: 09-01-[address] JAYLON CHEN Facility:[facility]1 Start: 08-31-2022 End: 09-01-2022 Encounter for other preprocedural examination DR JAYLON CHEN Facility:[facility]1 Start: 07-11-2022 End: 07-11-2022 ambulatory China Shi Other [facility] Other Start: 07-11-2022 Office outpatient vi sit 25 minutes China Shi [facility] Start: 06-10-2022 End: 06-10-[address] JAYLON CHEN Facility:[facility]1 Start: 06-08-2022 Encounter for preprocedural laboratory examination DR JAYLON CHEN [facility] Start: 06-07-2022 End: 06-08-[address] JAYLON CHEN Facility:[facility]1 Start: 06-07-2022 End: 06-08-2022 Encounter for preprocedural laboratory examination DR JAYLON CHEN Facility:[facility]1 Start: 06-02-2022 End: 06-03-[address] JAYLON CHEN Facility:[facility]1 Start: 05-12-2022 End: 05-13-[address] JAYLON CHEN Facility:[facility]1 Start: 04-26-2022 End: 04-26-2022 ambulatory China Shi Other [facility] Other Start: 04-26-2022 Telephone encounter China Parra [facility] Start: 04-25-2022 End: 04-25-2022 ambulatory China Shi Other [facility] Other Start: 04-25-2022 Telephone encounter China Parra [facility] Start: 04-19-2022 End: 04-19-2022 ambulatory China Shi [facility] Other Start: 04-19-2022 Encounter for genera l adult medical examination without abnormal findings China Shi [facility] Start: 04-19-2022 End: 04-19-2022 Patient encounter procedure China Shi [facility] Start: 04-19-2022 Periodic preventive med est patient 40-64yrs China Shi [facility] Procedures Date Procedure Procedure Detail Performing Clinician Start: 05-02-2024 IGP,APTIMA HPV,AGE GDLN Jaylon Nicolaso DO Work Phone: Start: 05-02-2024 Microscopic observation [Identifier] in Cervix by Cyto stain Jaylon April DO Work Phone: Start: 05-03-2022 Microscopic observation [Identifier] in Cervix by Cyto stain Jaylon April DO Work Phone: Start: 09-29-2020 History of augmentation of breast S/P breast augmentation Jaylon April DO Work Phone: Plan of Treatment Date Care Activity Detail Author Start: 05-02-2029 Screening for malign ant neoplasm of cervix [facility] Start: 05-19-2025 Influenza vaccination Influenz a Vaccine (#1) [facility] Start: 05-12-2025 End: 05-12-2025 Patient encounter procedure 05/12/2025 1:00 PM EDT Office Visit [facility] [address] [place] [address] Jaylon Chen, DO [address] [place], [place] [id number] [facility] Start: 05-03-2025 Screening for malign ant neoplasm of cervix [facility] Start: 05-19-2024 Influenza vaccination Influenz a Vaccine (#1) [facility] Start: 2022 Screening for malign ant neoplasm of breast Mammogram [facility] Start: 2012 Screening for malign ant neoplasm of cervix HPV/Cotest [facility] End: 10-22-2024 Tb antigen response gamma interferon t-cell susp [facility] Work Phone: Comment on above: Once for 1 Occurrenc es starting 10/22/2024 until 10/22/2024 Immunizations Immunization Date Immunization Notes Care Provider Fa [facility] 06-17-2021 influenza virus vaccine, unspecified formulation Jaylon Chen DO Work Phone: [facility] 03-28-2021 COVID-19 Vaccine Pfi zer - Documentation Purposes Only China Shi Other [facility] Other 03-07-2021 COVID-19 Vaccine Pfi zer - Documentation Purposes Only China Shi Other [facility] Other 03-26-2020 tetanus toxoid, redu fransisca diphtheria toxoid, and acellular pertussis vaccine, adsorbed China Shi Other [facility] Other 09-15-2017 influenza, seasonal, injectable China Shi Other [facility] Other Payers Date Payer Category Payer [facility] [id number] 2022 Self-pay [id number] 1980 Unknown [id number] 593 1982 Unknown [id number]. 593 1982 Unknown [id number]. 593 1982 Unknown [id number] [id number]. 593 1982 Unknown [id number] [id number]. 593 1982 Unknown [id number] [id number]. 593 1982 Unknown [id number] [id number]. 593 1982 Unknown [id number] [id number]. 1259 1959 Private Health Insurance [id number] Private Health Insurance [facility] [id number] Private Health Insurance [facility] [id number] Unknown [id number] Unknown 1981 [id number] Unknown [id number] 531 Social History Date Type Detail Facility Unknown if ever smoked [facility] Work Phone: Start: 01-11-2015 End: 05-02-2024 Sex Assigned At [facility] Other Start: 1980 Sex Assigned At Female F [facility] Start: 05-02-2024 Tobacco smoking status [facility] Ex-smoker [facility] History of tobacco use Current smoker [facility] History of tobacco use Cigarette Smoker [facility] Start: 05-02-2024 Tobacco use and exposure Smokeless tobacco non-user [facility] Start: 05-02-2024 Alcoholic beverage intake Ex-drinker (finding) [facility] Start: 01-11-2015 End: 05-02-2024 History of Social function [facility] Start: 02-06-2023 Alcohol Comment caffeine :3-4 cups per day [facility] Start: 02-13-2023 Gender identity Identifies as female gender (finding) [facility] Tobacco smoking status [facility] Tobacco smoking consumption unknown [facility] Start: 1980 Sex assigned at Not on file B on [email or web address] Evaluation note 02-24-2023 Note Date & Type Note Facility 02-24-2023 Evaluation note Encounter Date Diagnosis Assessment Notes Feb, Wellness examination (ICD-10 - Z00.00) Age appropriate screening & recommendations reviewed & discussed with patient. Feb, Laboratory exam ordered as part of routine general medical examination (ICD-10 - Z00.00) Feb, Anxiety (ICD-10 - F41.9) Reviewed options, will do combo as above rather than high dose wellbutrin. Depression well controlled, anxiety problematic. Feb, Gastroesophageal reflux disease, esophagitis presence not specified (ICD-10 - K21.9) Feb, Obesity (ICD-10 - E66.9) Patient to get through upcoming surgery prior to starting rx for weight. She is to look into coverage for wegovy, would be good option to try. Schedule back after surgery recovery. [facility] Other Evaluation note 07-11-2022 Note Date & Type Note Facility 07-11-2022 Evaluation note Encounter Date Diagnosis Assessment Notes Jun, Acute sinusitis (ICD-10 - J01.90) Advised to take entire course of antibiotics as prescribed. -Rest, push fluids, tylenol or ibuprofen PRN for pain/fever, nasal saline spray as needed. Jun, Anxiety (ICD-10 - F41.9) Patient has multiple stressors, increased anxiety and intermittent panic attacks. She is interested in trying wellbutrin d/t also smoking, having possible ADHD and wanting to lose weight. We did discuss that for some people this works well for anxiety but for others it can sometimes cause agitation and increased anxiety. She is aware of this and would still like to do trial rather than start with normal first line of SSRI. we will hold that in reserve if not tolerating wellbutrin, she may call if needed and would switch to fluoxetine. [facility] Other Clinical Note 06-10-2022 Note Date & Type Note Facility 06-10-2022 Note OPERATIVE NOTE OPERATION DATE: 06/10/2022 PROCEDURE: Jocelin endometrial ablation and skin tag removal. PREOPERATIVE DIAGNOSIS: Menorrhagia. POSTOPERATIVE DIAGNOSIS: Menorrhagia. ANESTHESIA: General. SURGEON: Jaylon Chen D.O. ADVANCED PRACTICE PROFESSIONAL: None. FINDING: Fluffy appearing endometrium. No gross evidence of polyps, fibroids or malignancy. URINE OUTPUT: Yellow and clear. SPECIMEN: None. BLOOD LOSS: 5 mL. PROCEDURE: The patient was taken back to the OR where she was prepped and draped in the normal sterile fashion after being placed in the dorsal lithotomy position, after being placed under general anesthesia without difficulty. A weighted speculum was placed into the vagina. The anterior lip was grasped with a single tooth tenaculum. The patient was then sounded to approximated 9 cm. The patient's cervix was gently dilated using Hegar dilators. The hysteroscope was passed through the cervix into the uterus where both ostia were seen. No gross evidence of polyps, fibroids or malignancy. The cervical length was noted to be 4 cm. The total cavity length is 5 cm. The Jocelin ablation apparatus was set to approximately 4 cm in length. This was placed through the cervix and into the uterus. After the seal was tested, at that time the total ablation of 120 seconds was performed with the Jocelin without difficulty. All instruments were removed from the vagina. Excellent hemostasis noted. Sponge and lap count correct times 2. Patient taken to recovery in stable condition. Also, note that three skin tags were removed from the patient's thigh. The skin tags were identified, tented up with grasper and cut off sharply using scissors. Excellent hemostasis was noted. No need for suture was applied. [facility] Evaluation note 04-19-2022 Note Date & Type Note Facility 04-19-2022 Evaluation note Encounter Date Diagnosis Assessment Notes Apr, Menorrhagia with regular cycle (ICD-10 - N92.0) Patient having irregular bleeding for the past several weeks. Will update labs with attn to hgb/iron. She is to keep upcoming appt with COYOTE HUNTER. Pap done today. Apr, Well woman exam (ICD-10 - Z01.419) Age appropriate screening & recommendations reviewed & discussed with patient. -Will call with pap results. Please call office for your results if you have not heard back within 2 weeks. Apr, Laboratory exam ordered as part of routine general medical examination (ICD-10 - Z00.00) Apr, Screening for breast cancer (ICD-10 - Z12.31) Apr, Screening for cervical cancer (ICD-10 - Z12.4) [facility] Other Evaluation note Note Date & Type Note Facility Evaluation note No Information [facility] Other Evaluation note Note Date & Type Note Facility Evaluation note No assessment information [facility] Work Phone: History general Narrative - Reported Note Date & Type Note Facility History general Narrative - Reported Type Medical History GERD Medical History Hearing loss Medical History Anxiety Surgical History Tonsillectomy 2007 Surgical History LEEP ~2003 Surgical History Breast augmentation bilaterally 2014 Surgical History Tubaligation 08/2018 [facility] Other History general Narrative - Reported Note Date & Type Note Facility History general Narrative - Reported Type Medical History GERD Medical History Hearing loss Medical History Anxiety Surgical History Tonsillectomy 2007 Surgical History LEEP ~2003 Surgical History Breast augmentation bilaterally 2013 Surgical History Tubaligation 08/2018 Surgical History ablation 2021 [facility] Other Chief Complaint and Reason for Visit Chief Complaint Screening for cervic al cancer Advance Directives Advance Directive Response Recorded Date/ Time Advance Directives No April 18, 2 018 3:17pm Summary Purpose Family History No Family History Records FoundNo Family History Records FoundNo Family History Records FoundNo Family History Records Found Additional Source Comments REASON FOR VISIT (unrecogniz ed section and content) vaginal bleeding x 3 weeks. Cable Installation Technician can't see her until end of April, RBR - Mammo, RBR - Well Woman Exam ICD-10pap results & lab resultslab resultssinus issues for 3 weeksWellness/ 6 Month Follow Up, RBR - Wellness Examination, last labs 04/2022, LAB EXAM - CBC, CMP, LIPID, TSH W/REFLEXclinical Care Teams (unrecognized sec tion and content) Team Status: Inactive Member Role Status Dates China Shi DO Primary Care Provider, Attending Provider Active Team Status: Active Member Role Status Dates China Shi DO Primary Care Provider Active Java Manager Relationship Specialty Start Date End Date China Shi MD [address] [place] [address] PCP - General Family Medicine 02/14/23 Java Manager Relationship Specialty Start Date End Date China Shi MD [address] [place] [phone] PCP - General Family Medicine 02/14/23 Goals (unrecognized section and content) Goals may be documented in a n alternate section INFORMATION SOURCE (unrecogn ized section and content) DATE CREATED AUTHOR 07/25/2022 [facility] DATE CREATED AUTHOR AUTHOR'S ORGANIZ ATION 09/09/2022 [facility] DATE CREATED AUTHOR AUTHOR'S ORGANIZ ATION 05/04/2024 [facility] DATE CREATED AUTHOR AUTHOR'S ORGANIZ ATION 11/03/2024 [facility] FOR RECORDS PERTAINING TO PATIENTS WHO ARE OR HAVE BEEN ENROLLED IN A CHEMICAL DEPENDENCY/SUBSTANCEABUSE PROGRAM, SOME INFORMATION MAY BE OMITTED. This clinical summary was aggregated from multiple sources. Caution should be exercised in using it in the provision of clinical care. This summary normalizes information from multiple sources, and as a consequence, information in this document may materially change the coding, format and clinical context of patient data. In addition, data may be omitted in some cases. CLINICAL DECISIONS SHOULD BE BASED ON THE PRIMARY CLINICAL RECORDS. [facility] [facility]. provides no warranty or guarantee of the accuracy or completeness of information in this document.
--- OUTSIDE RECORDS SUMMARY | 2025-05-12 20:26 | XMS_ITS | Encounter Summary ---
Author Organization [facility] Address [address] [place] [address] Care Team Providers Care Assistant Women'S Tennis Coach Name Role Phone Alisa Hinkle MD Primary Care Provider [phone] Encounter Details Date Type Department Care Team (Late Contact Info) Description 03/15/2023 Abstract [facility] [address] [place] [address] Mich Chen DO [address] [place] [address] Dr [place], [place] [address] Social History Tobacco Use Types Packs/Day Years Used Date Smoking Tobacco: Former Cigarettes Alcohol Use Standard Drinks/Week Comments Not Currently 0 (1 standard drink = 0.6 oz pur e alcohol) caffeine :3-4 cups per day Comments Unknown Sex and Gender Information Value Date Recorded Sex Assigned at Female 02/13/2023 10:46 AM EDT Legal Sex Female 6:48 PM EDT Gender Identity Female 02/13/2023 10:46 AM EDT Sexual Orientation Not on file COVID-19 Exposure Response Date Recorded In the last 10 days, have yo u been in contact with someone who was confirmed or suspected to have Coronavirus/COVID-19? No / Unsure 02/13/2023 10:54 AM EDT documented as of this encounter Plan of Treatment Upcoming Encounters Date Type Department Care Team (Late Contact Info) Description 05/18/2026 2:00 PM EDT Procedure [facility] [address] [facility] [address] Mich Chen, [address] [place] [address] documented as of this encounter Visit Diagnoses Not on filedocumented in this encounter Care Teams Assistant Women'S Tennis Coach Relationship Specialty Start Date End Date Alisa Hinkle MD [address] [place] [phone] PCP - General Family Medicine 02/14/23 documented as of this encounter
--- OUTSIDE RECORDS SUMMARY | 2025-05-12 20:27 | XMS_ITS | Encounter Summary ---
Author Organization [facility] Address [address] [place] [address] Care Team Providers Care Card Hand Name Role Phone Alisa Hinkle MD Primary Care Provider Encounter Details Date Type Department Care Team (Late Contact Info) Description 05/12/2025 Bamboo flowsheet [facility] [address] [place] [address] Mich Chen DO [address] [place], [place] [address] Social History Tobacco Use Types Packs/Day Years [...] on file documented as of this encounter Plan of Treatment Upcoming Encounters Date Type Department Care Team (Late Contact Info) Description 05/18/2026 2:00 PM EDT Procedure Visit [facility] [address] [place] [address] Mich Chen DO [address] [place], [place] [address] documented as of this encounter Visit Diagnoses Not on filedocumented in this encounter Care Teams Card Hand Relationship Specialty Start Date End Date Alisa Hinkle MD [address] [place] [phone] PCP - General Family Medicine 02/14/23 documented as of this encounter
--- OUTSIDE RECORDS SUMMARY | 2025-05-12 20:27 | XMS_ITS | Encounter Summary ---
Author Organization [facility] Address [address] [facility] [place] [address] Care Team Providers Care Oil Well Engineer Name Role Phone Alisa Hinkle MD Primary Care Provider [phone] Encounter Details Date Type Department Care Team (Latest Contact Info) Description 05/12/2025 Travel Social History Tobacco Use Types Packs/Day Years [...] EDT Procedure Visit [facility] [address] [place] [phone] Mich Chen DO [address] [facility] [place] [address] documented as of this encounter Visit Diagnoses Not on filedocumented in this encounter Care Teams Oil Well Engineer Relationship Specialty Start Date End Date Alisa Hinkle MD [address] [place] [phone] PCP - General Family Medicine 02/14/23 documented as of this encounter
--- OUTSIDE RECORDS SUMMARY | 2025-05-12 20:27 | XMS_ITS | Encounter Summary ---
Author Organization [facility] Address [address] [place] [address] Care Team Providers Care Corporate Coordinator Name Role Phone Alisa Hinkle MD Primary Care Provider [phone] Encounter Details Date Type Department Care Team (Late Contact Info) Description 02/06/2023 Abstract [facility] [address] [place] [address] Mich Chen DO [address] [place] [address] Dr [place], [place] [address] Social History Tobacco Use Types Packs/Day Years Used Date Smoking Tobacco: Former Cigarettes Tobacco Cessation:Counseling Given: Not Answered Alcohol Use Standard Drinks/Week Comments Not Currently [...] PM EDT Procedure Visit [facility] [address] [facility] [place] [address] Mich Chen DO [address] [place], [place] [phone] documented as of this encounter Visit Diagnoses Not on filedocumented in this encounter Care Teams Corporate Coordinator Relationship Specialty Start Date End Date Alisa Hinkle MD [address] [place] [phone] PCP - General Family Medicine 02/14/23 documented as of this encounter
--- OUTSIDE RECORDS SUMMARY | 2025-05-12 20:27 | XMS_ITS | Clinical Summary ---
Author Organization [facility] Address [address] [place] [address], [address] [place] [address] Care Team Providers Care Ferry Engineer Name Role Phone Unavailable Primary Care Provider Unavailabl e Social History Tobacco Use Types Packs/Day Years Used Date Smoking Tobacco: Never Assessed Comments Unknown Sex and Gender Information Value Date Recorded Sex Assigned at Not on file Legal Sex Female 3:37 PM EDT Gender Identity Not on file Sexual Orientation Not on file Plan of Treatment Health Maintenance Due Date Last Done Comments DTaP/Tdap/Td vaccine (1 - Tdap) 2001 COVID-19 Vaccine (2023-2 5 season) 2024 Flu vaccine (#1) 04/18/2025 Polio vaccine Aged Out No longer elig ible based on patient's age to complete this topic
--- OUTSIDE RECORDS SUMMARY | 2025-05-12 20:27 | XMS_ITS | Clinical Summary ---
Author Organization [facility] Address [address] [place] [address] Care Team Providers Care Outboard Motor Assembler Name Role Phone Alisa Hinkle MD Primary Care Provider [phone] Allergies Active Allergy Reactions Criticality Noted Date Comments Other Hives 05/01/2023 Flu shot Sulfamethoxazole-Trimetho prim Hives,Unknown 07/10/2018 Other reaction(s): Unknown Tuberculin Tests Unknown 09/29/2020 Medications APPLE CIDER VINEGAR PO Take by mouth Active therapeutic multivitamin-iro n-minerals (Theragran-M) tablet Take 1 tablet by mouth in the morning. Active Active Problems Problem Noted Date Diagnosed Date Anxiety 03/22/2023 Bronchitis 03/22/2023 Deep dyspareunia 03/22/2023 Irregular menstruation 03/22/2023 Secondary dysmenorrhea 03/22/2023 Sore throat 03/22/2023 Chronic pruritus 09/29/2020 Obesity (BMI 30.0-34.9) 09/29/2020 S/P breast augmentation 09/29/2020 Encounters Date Type Department Care Team Description 05/12/2025 1:10 PM EDT Office Visit [facility] [address] [place] [address] Mich Chen, DO Well woman exam with routine gynecological exam; H/O: hysterectomy; Breast cancer screening by mammogram 05/12/2025 Bamboo flowsheet [facility] [address] [facility] [place] [address] Mich Chen DO 05/12/2025 Travel from Last 3 Months Family History Medical History Relation Name Comments Hypertension Father Pat Heart disease Mother Maria E Hypertension Mother Maria E Other Mother Maria E Colon cancer Paternal Grandmother Raynaud syndrome Sister Scoliosis Sister No Known Problems Son Relation Name Status Comments Father Pat Mother Maria E Alive Paternal Grandmother Sister Son Alive Social History Tobacco Use Types Packs/Day Years Used Date Smoking Tobacco: Former Cigarettes Smokeless Tobacco: Never Tobacco Cessation:Counseling Given: Not Answered Alcohol Use Standard Drinks/Week Comments Not Currently 0 (1 standard drink = 0.6 oz pur e alcohol) caffeine :3-4 cups per day Comments No Sex and Gender Information Value Date Recorded Sex Assigned at Female 02/13/2023 10:46 AM EDT Legal Sex Female 6:48 PM EDT Gender Identity Female 02/13/2023 10:46 AM EDT Sexual Orientation Not on file Last Filed Vital Signs Vital Sign Reading Time Taken Comments Blood Pressure 122/74 05/12/2025 1:48 PM EDT Pulse - - Temperature - - Respiratory Rate - - Oxygen Saturation - - Inhaled Oxygen Concentration - - Weight 98 kg (216 lb) 05/12/2025 1:48 PM EDT Height 170.2 cm (5' 7 ) 05/02/2024 11:32 AM EDT Body Mass Index 33.83 05/02/2024 11:32 AM EDT Plan of Treatment Upcoming Encounters Date Type Department Care Team (Late st Contact Info) Description 05/18/2026 2:00 PM EDT Procedure Visit [facility] [address] [facility] [place] [phone] Mich Chen DO [address] [place] [address] Health Maintenance Due Date Last Done Comments Mammogram 2022 Influenza Vaccine (#1) 2025 06/17/2021, 2016 Cervical Cancer Screening 05/02/2029 HPV/Cotest 05/02/2029 Pap Smear 05/02/2029 05/02/2024, 05/03/2022 Procedures Procedure Name Priority Date/Time Associated Diagnosis Comments PAP SMEAR Routine 05/02/2024 12:00 AM EDT from Last 3 Months or Most Recently Relevant to Health Maintenance Results * Pap Smear (05/02/2024 12:00 AM EDT) Swab Cervical swab / Unknown us Mich April DO LAB CYTOLOGY ORDERABLES Final Re sult EXTERNAL LAB from Last 3 Months or Most Recently Relevant to Health Maintenance Care Teams Outboard Motor Assembler Relationship Specialty Start Date End Date Alisa Hinkle MD [address] [place] [phone] PCP - General Family Medicine 02/14/23
--- OUTSIDE RECORDS SUMMARY | 2025-05-12 20:27 | XMS_ITS | Clinical Summary ---
Author Organization [facility] Address [address] [place] [address] Care Team Providers Care Oil Well Service Unit Operator Name Role Phone Alisa Hinkle MD Primary Care Provider [phone] Allergies Active Allergy Reactions Criticality Noted Date Comments Sulfamethoxazole-Trimethopr im 07/10/2018 Other reaction(s): Unknown Tuberculin Tests 09/29/2020 Medications multivitamin tablet Take 1 tablet by mouth daily. Active APPLE CIDER VINEGAR PO Take by mouth. Active Active Problems Problem Noted Date Diagnosed Date Obesity (BMI 30.0-34.9) 09/29/2020 Chronic pruritus 09/29/2020 S/P breast augmentation 09/29/2020 Social History Tobacco Use Types Packs/Day Years Used Date Smoking Tobacco: Former Smokeless Tobacco: Never Alcohol Use Standard Drinks/Week Comments Not Currently 0 (1 standard drink = 0.6 oz pur e alcohol) Comments Unknown Sex and Gender Information Value Date Recorded Sex Assigned at Not on file Legal Sex Female 9:17 AM EST Gender Identity Not on file Sexual Orientation Not on file Last Filed Vital Signs Vital Sign Reading Time Taken Comments Blood Pressure 123/80 09/29/2020 1:36 PM EST Pulse 76 09/29/2020 1:36 PM EST Temperature 36.4 C (97.6 F) 09/29/2020 1:36 PM EST Respiratory Rate - - Oxygen Saturation - - Inhaled Oxygen Concentration - - Weight 97.1 kg (214 lb) 09/29/2020 1:36 PM EST Height 170.2 cm (5' 7 ) 09/29/2020 1:36 PM EST Body Mass Index 33.52 09/29/2020 1:36 PM EST Plan of Treatment Health Maintenance Due Date Last Done Comments HEPATITIS C VIRUS SCREENING 1982 HIV SCREENING DISCUSSION 1997 CERVICAL CANCER SCREENING DISCUSSION 2003 HPV VACCINE (1 - 3-dose SCDM series) 2009 HEP B VACCINE (3 of 3 - 19+ 3-dose series) 11/11/2009 09/16/2009, 03/25/2009, 02/20/2009 LIPID SCREENING 2022 MAMMOGRAM SCREENING DISCUSSION 2022 COVID-19 VACCINE (1 - 2023-2 5 season) 2024 INFLUENZA VACCINE (#1) 2025 7, 09/16/2009 TETANUS 03/26/2030 03/26/2020, 11/10/2008 TDAP (ADULT) Completed 03/26/2020, 11/10/2008 PNEUMOCOCCAL VACCINE SERIES Aged Out No longer eligible based on patient's age to complete this topic Insurance Pre Paid Elective Self Pay on file Care Teams Oil Well Service Unit Operator Relationship Specialty Start Date End Date Alisa Hinkle MD [address] [place] [address] [address] [place] [address] PCP - General Family Medicine 09/29/20
--- OUTSIDE RECORDS SUMMARY | 2025-05-12 20:27 | XMS_ITS | Encounter Summary ---
Author Organization [facility] Address [address] [place] [address] Care Team Providers Care Showplace Manager Name Role Phone Alisa Hinkle MD Primary Care Provider [phone] Encounter Details Date Type Department Care Team (Late Contact Info) Description 05/09/2024 Orders Only [facility] [address] [place] [phone] [place] [address] [place] [address] Social History Tobacco Use Types Packs/Day Years [...] 2:00 PM EDT Procedure Visit [facility] [address] [place] [phone] Mich Chen DO [address] [place] [address] documented as of this encounter Procedures Procedure Name Priority Date/Time Associated Diagnosis Comments PAP SMEAR Routine 05/02/2024 12:00 AM EDT documented in this encounter Results * Pap Smear (05/02/2024 12:00 AM EDT) Swab Cervical swab / Unknown us Mich April DO LAB CYTOLOGY ORDERABLES Final Re sult EXTERNAL LAB documented in this encounter Visit Diagnoses Not on filedocumented in this encounter Care Teams Showplace Manager Relationship Specialty Start Date End Date Alisa Hinkle MD [address] [place] [phone] PCP - General Family Medicine 02/14/23 documented as of this encounter
--- OUTSIDE RECORDS SUMMARY | 2025-05-12 20:27 | XMS_ITS | Encounter Summary ---
Author Organization [facility] Address [address] [place] [address] Care Team Providers Care Mechanical Planner Name Role Phone Alisa Hinkle MD Primary Care Provider [phone] Encounter Details Date Type Department Care Team (Late Contact Info) Description 03/23/2023 Abstract [facility] [address] [facility] [place] [address] Zaynab Ewdards PA [address] [place] [address] [address] [place], [place] [address] Social History Tobacco Use Types Packs/Day Years [...] suspected to have Coronavirus/COVID-19? No / Unsure 03/26/2023 3:41 PM EDT documented as of this encounter Plan of Treatment Upcoming Encounters Date Type Department Care Team (Late Contact Info) Description 05/18/2026 2:00 PM EDT Procedure Visit [facility] [address] [place] [address] Mich Chen, DO [address] [place] [address] [place] [address] documented as of this encounter Visit Diagnoses Not on filedocumented in this encounter Care Teams Mechanical Planner Relationship Specialty Start Date End Date Alisa Hinkle MD [address] [place] [phone] PCP - General Family Medicine 02/14/23 documented as of this encounter
[2025-05-16 14:09] LABS: Age Gdln ACOG Testing Note (.); IGP, Aptima HPV, rfx 16/18,45 Note (.)
== END 2025-05-12 20:24 | disposition home or self-care (01) ==
LOC: LAB 20:23
PROVIDERS: Visit Provider Obstetrics & Gynecology
DX: Z01.419 Encounter for gynecological examination (general) (routine) without abnormal findings (principal); Z90.710 Acquired absence of both cervix and uterus
CPT/HCPCS: 87624; 88175